=== PATIENT | male | born 1990 | race Hispanic/Latino ===

== ENCOUNTER 2017-03-10 19:52 | Emergency (ER) | payer OTHER ==
--- NOTE | 2017-03-10 20:21 | RADIOLOGY REPORT ---
EXAMINATION: XR ANKLE, RIGHT CLINICAL INFORMATION: Swelling and pain. Fall. COMPARISON: None TECHNIQUE: AP, lateral, and mortise views of the right ankle. FINDINGS: Soft tissue swelling at lateral malleolus. No fracture. No dislocation. Ankle mortise is congruent. IMPRESSION: Soft tissue swelling at lateral malleolus. No fracture or dislocation.
--- NOTE | 2017-03-10 20:53 | ED ANKLE/FOOT INJURY COMPLAINT ---
History of Present Illness General Chief Complaint: Foot or Ankle Injury Stated Complaint: RIGHT ANKLE INJURY S/P FALL Source: patient Exam Limitations: no limitations Vital Signs & Intake/Output Vital Signs & Intake/Output Vital Signs Date Time Temp Pulse Resp B/P B/P Pulse O2 O2 Flow FiO2 Mean Ox Delivery Rate 03/10 1959 97.4 76 16 141/91 99 Room Air Allergies Coded Allergies: No Known Allergies (03/10/17) Triage Note: 26M TO ED FOR WORK INJURY. PT STEPPED DOWN OFF A VAN STEP AND TWISTED ANKLE, FELT A POP. ARRIVES WITH SIGNIFICANT LATERAL ANKLE PAIN WORSE WITH FLEXION AND MOVEMENT. +SENSATION. XRAY ORDERED AND MED WITH MOTRIN. INDUSTRIAL ACCIDENT FORM INITIATED IN TRIAGE. RUCHI WRAP WITH ICE PACK APPLIED. Triage Nurses Notes Reviewed? yes Duration: hour(s): Timing: single episode today Severity: moderate, severe Pain/Injury Location: Right: Ankle. Method of Injury: twisted No Modifying Factors: none HPI: 26 year-old male comes into emergency room for further evaluation of right ankle pain. Patient twisted his ankle when stepping off of a truck. Patient felt a pop. Throbbing pain. Continuous. Nonradiating. Denies any other associated symptoms. Past History Travel History Traveled to [place] past 21 day No Medical History Any Pertinent Medical History? none Surgical History Surgical History: non-contributory Psychosocial History What is your primary language [place] Tobacco Use: Quit >30 days ago Family History Hx Contributory? No Review of Systems Review of Systems Constitutional: Reports: no symptoms. EENTM: Reports: no symptoms. Respiratory: Reports: no symptoms. Cardiovascular: Reports: no symptoms. GI: Reports: no symptoms. Genitourinary: Reports: no symptoms. Musculoskeletal: Reports: see HPI. Skin: Reports: no symptoms. Neurological/Psychological: Reports: no symptoms. Hematologic/Endocrine: Reports: no symptoms. Immunologic/Allergic: Reports: no symptoms. All Other Systems: Reviewed and Negative Physical Exam Physical Exam General Appearance: well developed/nourished, mild distress Head: atraumatic Eyes: Bilateral: normal appearance. Ears, Nose, Throat: normal ENT inspection, hearing grossly normal Neck: normal inspection Cardiovascular/Respiratory: no respiratory distress Back: normal inspection Leg/Knee/Thigh Left: normal inspection Leg/Knee/Thigh Right: normal inspection Ankle Right: soft tissue tenderness, swelling, tenderness, limited range of motion Neuro/Vascular: normal motor function, normal sensation Tendon: normal tendon function Psychiatric: awake, alert, oriented x 3 Skin: intact, normal color, warm/dry Progress Differential Diagnosis: fracture, dislocation, sprain, contusion, compartmental syndrome Plan of Care: Orders Procedure Date/time Status Durable Medical Equipment 03/10 2054 Active Diagnostic Imaging: Viewed by Me: Radiology Read. Discussed w/RAD: Radiology Read. Radiology Impression: SERVICE DATE: 03/10/17 EXAM TYPE: RAD - XRY-ANKLE 3 OR MORE VIEWS R EXAMINATION: XR ANKLE, RIGHT CLINICAL INFORMATION: Swelling and pain. Fall. COMPARISON: None TECHNIQUE: AP, lateral, and mortise views of the right ankle. FINDINGS: Soft tissue swelling at lateral malleolus. No fracture. No dislocation. Ankle mortise is congruent. IMPRESSION: Soft tissue swelling at lateral malleolus. No fracture or dislocation. DICTATED BY: MARCOS REN MD DATE /TIME DICTATED:03/10/172016 MILIEU MANAGER:SARAY DATE/TIME TRANSCRIBED: 03/10/172016 Departure Departure Disposition: HOME OR SELF CARE Condition: Stable Clinical Impression Primary Impression: Right ankle sprain Referrals: CARLOS GURROLA,[place] PATIENT HAS NO PRIMARY CARE DR (PCP/Family) Additional Instructions: Ice. Rest. Motrin for pain. Elevation. Follow-up with orthopedic doctor provided if not better in 3-5 days. If symptoms do not improve you'll require further evaluation with possible repeat x-rays as well as evaluation by sales merchandising specialist. Sprains can last anywhere from days to weeks. No high impact running or jumping if you have an ankle sprain or any type of lower extremity sprain. Return to normal activity only after symptoms have resolved. Please go over all results of today's visit with your primary care doctor. Contact your primary care doctor to let them know you were here in the emergency room. There may be nonspecific findings which may not be related to your visit today here in the emergency room but may require further evaluation and chronic monitoring by your primary care doctor. If you had a laceration today the chance of foreign body always remains. You should follow-up with your primary care doctor for recheck in 3-5 days for a wound check. If you had an x-ray done there is a chance that a fracture could have been missed on initial read and you should follow-up with your primary care doctor for repeat x-rays if symptoms persist. If your blood pressure was elevated here in the emergency room please have rechecked by her primary care doctor within the next 48 hours by your primary care doctor. If you were prescribed a narcotic here in the emergency room or any type of controlled substances you're not allowed to drive while taking this medication or operate any type of heavy machinery. Narcotics can make you feel lightheaded dizziness nausea and can cause constipation. You may need to cotton picker operator a stool softener. Thank you for choosing [facility] emergency room. Please return to the emergency room immediately if you have any other concerns worsening of symptoms. Departure Forms: Customer Survey Employee Industrial Accident General Discharge Information Procedures Splinting Location: right ankle Splint: pneumatic boot Splint Applied By: splint applied by me Pre-Proc Neuro Vasc Exam: normal
[2017-03-10 21:46] VITALS: BP 138/88
== END 2017-03-10 21:46 ==
LOC: ERH 19:52
DX: S93.401A Sprain of unspecified ligament of right ankle, initial encounter (principal); X50.9XXA Other and unspecified overexertion or strenuous movements or postures, initial encounter; Y93.01 Activity, walking, marching and hiking; Y92.9 Unspecified place or not applicable
CPT/HCPCS: 73610-RT